=== PATIENT | female | born 1970 | race Caucasian/White ===

== ENCOUNTER 2024-03-22 23:34 | Inpatient (IN) | payer OTHER, SELFPAY ==
--- NOTE | ~2024-03-22 | XR_ITS ---
EXAMINATION: XR retrograde pyelo w/stent LT DATE: 03/23/2024 12:09 INDICATION: Left hydronephrosis. TECHNIQUE: 7 intraoperative fluoroscopic views of the abdomen and pelvis were obtained. I was not pre sent. Fluoroscopy exposure time was 17 seconds. COMPARISON: CT abdomen and pelvis 03/23/2024 FINDINGS: The left-sided retrograde pyelogram demonstrates mild hydronephrosis. The final images demo nstrate a left internal ureteral stent in expected position. IMPRESSION: 1. Mild left hydronephrosis. 2. Left internal ureteral stent in expected position. Reviewed, dictated and finalized at location A.
--- NOTE | ~2024-03-22 | XR_ITS ---
EXAMINATION: XR abdomen/kub 1V DATE: 03/24/2024 11:43 INDICATION: Left ureteral stone. TECHNIQUE: A supine view of the abdomen on 2 radiographs was obtained. COMPARISON: Abdomen radiograph 03/23/2024, CT abdomen and pelvis 03/23/2024 FINDINGS: There are no dilated loops of bowel. There is a left internal ureteral stent in expected po sition. There is a phlebolith in right pelvis. There is a 6 mm stone in left kidney. IMPRESSION: 1. 6 mm stone in left kidney. 2. Left internal ureteral stent in expected position. Reviewed, dictated and finalized at location E.
--- NOTE | ~2024-03-22 | CT_ITS ---
CT of the Abdomen and Pelvis: Indication: Abdominal pain Technique: 2.5 mm axial scans were obtained through the abdomen and pelvis following intravenous adm inistration of 100 cc of Omnipaque 350. Dose reduction technique was used on this scan by utilizing a utomated exposure control and iterative reconstruction technique. The dose-length product (DLP) was 9 67.73 mGy-cm. Findings: Scans through the lung bases are unremarkable. The liver, spleen, pancreas, gallbladder, adrenals and right kidney are within normal limits. There i s an 8 mm stone at the very proximal left ureter/left UPJ region, with mild left hydronephrosis and m inimal left perinephric stranding. There is an additional punctate nonobstructing left renal stone. S uggestion of mild decreased parenchymal enhancement of the inferior left renal pole. There are athero sclerotic calcifications of the aorta. . No lymphadenopathy. No bowel obstruction or bowel wall thickening. There is no evidence to suggest acute appendicitis. Images through the pelvis were performed. Urinary bladder unremarkable. No pelvic mass seen. No ascit es. Impression: 8 mm stone at the left UPJ region with mild left hydronephrosis and minimal perinephric stranding. Possible superimposed subtle left pyelonephritis. Correlate clinically and with urinalysis. Reviewed, dictated and finalized at location . Impression: 8 mm stone at the left UPJ region with mild left hydronephrosis and minimal per inephric stranding. Possible superimposed subtle left pyelonephritis. Correlate clinically and with urinalysis.
--- NOTE | ~2024-03-22 | XR_ITS ---
Clinical Indication: Fever PA and lateral views of the chest: Comparison: None Findings: The lungs are clear, without evidence of focal consolidation or pleural effusion. Cardiome diastinal silhouette is within normal limits. Bones and soft tissues are unremarkable. Impression: Normal chest. Reviewed, dictated and finalized at location . Impression: Normal chest.
--- NOTE | ~2024-03-22 | XR_ITS ---
Supine and upright views of the abdomen Clinical history: Kidney stone Findings: Bowel gas pattern is nonspecific. No evidence for obstruction or free air. 7 mm stone noted at the left UPJ region. There is contrast opacification of a mildly dilated left renal collecting sy stem Osseous structures are intact. Impression: 7 mm stone at the left UPJ. Mild left hydronephrosis. Reviewed, dictated and finalized at location . Impression: 7 mm stone at the left UPJ. Mild left hydronephrosis.
[2024-03-22 23:35] VITALS: BP 122/80; PULSE 110; RESP 16; TEMP 36.8; O2SAT 97
[2024-03-23] VITALS (17 sets, daily range): BP systolic 89–140; BP diastolic 58–86; PULSE 78–99; RESP 12–20; TEMP 36.1–37; O2SAT 94–100; BMI 35.5
[2024-03-23 00:25] LABS: Appearance Urine Clear (Clear); Bacteria Urine 1+ /hpf; Bilirubin Urine Negative (Negative); Blood Urine 1+ (Negative); Color Urine Yellow (Yellow); Glucose Urine UA Negative (Negative); Ketones Urine Negative (Negative); Leukocyte Esterase Ur 3+ LEU/UL (Negative); Nitrate Urine Negative (Negative); Non Pathogenic Casts 0-2; Protein Urine Negative (Negative); RBC Urine 0-2 /hpf (0-2); Specific Grav Ur 1.008 (1.001-1.035); Squamous Epithelial Cell Urine Occasional /hpf (Few); Urobilinogen Urine 0.2 mg/dL (<2.0); WBC Urine 51-100 /hpf (0-3); pH Urine 6.5 (5.0-9.0)
[2024-03-23 00:27] LABS: Add Urine Microscopic? YES
[2024-03-23 00:56] LABS: Influenza A QL RT-PCR Negative (Negative); Influenza B QL RT-PCR Negative (Negative); RSV RNA, RT-PCR Negative (Negative); SARS-CoV-2 RNA PCR Negative (Negative)
--- NOTE | 2024-03-23 01:08 | ECG_ITS ---
SEE SCANNED COPY FOR CONFIRMED REPORT MTDD
--- NOTE | 2024-03-23 01:15 | ED.FEVER ---
HPI - Fever General Chief Complaint: Fever <MISSY Strickland Last Filed: 03/23/24 02:56> Stated Complaint: fever, low back pain <MISSY Strickland Last Filed: 03/23/24 02:56> Time Seen by Provider: 03/23/24 00:54 <Juliet Eden PA-C - Last Filed: 03/23/24 02:56> History of Present Illness HPI Narrative: 53-year-old female presents to emergency department for fever for the past 3 days. Patient states T-max at home was 102 couple of days ago. She states her temperature was 101.4? before she left because to come to the ED. She is reporting some dysuria, left-sided abdominal pain and left flank pain. She notes that she was treated for urinary tract infection approximately 1 month ago with cefdinir. States she took the course of antibiotics with improvement, however symptoms have returned. She is also reporting some constipation. Last bowel movement was 3 days ago. She denies prior abdominal surgeries, chest pain or shortness of breath, cough or congestion. She does endorse a history of kidney stones. <MISSY Strickland Last Filed: 03/23/24 02:56> Related Data Allergies/Adverse Reactions: Allergies Allergy/AdvReac Type Severity Reaction Status Date / Time No Known Allergies Allergy Verified 03/23/24 01:35 <MISSY Strickland Last Filed: 03/23/24 02:56> Review of Systems Review of Systems: CONSTITUTIONAL: See HPI EYES: Denies visual changes, redness, or discharge. ENT: Denies rhinorrhea, congestion, sore throat, or otalgia. CARDIOVASCULAR: Denies chest pain, palpitations, or edema. RESPIRATORY: Denies cough or dyspnea. GASTROINTESTINAL: See HPI GENITOURINARY: See HPI SKIN: Denies rash or itching. MUSCULOSKELETAL: Denies back pain, joint pain, or myalgia. NEUROLOGIC: Denies headache, numbness, or weakness. PSYCHIATRIC: Denies anxiety or depression. <MISSY Strickland Last Filed: 03/23/24 02:56> Exam Narrative: GENERAL: Well-appearing, well-nourished, and in no acute distress. HEAD: Normocephalic, atraumatic. EYES: PERRLA and EOMI. ENT: Nares clear, no rhinorrhea or epistaxis. Mucous membranes moist. NECK: Supple. CHEST: Clear to auscultation. No respiratory distress. HEART: Regular rate and rhythm. No murmur heard. Normal peripheral pulses. ABDOMEN: Quiet bowel sounds. Abdomen soft with tenderness in the left lower quadrant. No rebound, guarding or rigidity. Left CVA tenderness. EXTREMITIES: Normal range of motion. No edema. SKIN: Warm, dry, no rash. NEURO: No focal deficits. Alert and oriented x3 <MISSY Strickland Last Filed: 03/23/24 02:56> Course Vital Signs Vital signs: Vital Signs Temperature 98.2 F 03/22/24 23:35 Pulse Rate 110 H 03/22/24 23:35 Respiratory Rate 16 03/22/24 23:35 Blood Pressure 122/80 03/22/24 23:35 Pulse Oximetry 97 03/22/24 23:35 Oxygen Delivery Room Air 03/22/24 23:35 Temperature 97.5 F L 03/23/24 04:03 Pulse Rate 90 03/23/24 05:16 Respiratory Rate 20 03/23/24 05:16 Blood Pressure 118/80 03/23/24 05:16 Pulse Oximetry 100 03/23/24 05:16 Oxygen Delivery Room Air 03/22/24 23:35 <Juliet Eden PA-C - Last Filed: 03/23/24 02:56> Vital Signs Temperature 98.2 F 03/22/24 23:35 Pulse Rate 110 H 03/22/24 23:35 Respiratory Rate 16 03/22/24 23:35 Blood Pressure 122/80 03/22/24 23:35 Pulse Oximetry 97 03/22/24 23:35 Oxygen Delivery Room Air 03/22/24 23:35 Temperature 97.5 F L 03/23/24 04:03 Pulse Rate 90 03/23/24 05:16 Respiratory Rate 20 03/23/24 05:16 Blood Pressure 118/80 03/23/24 05:16 Pulse Oximetry 100 03/23/24 05:16 Oxygen Delivery Room Air 03/22/24 23:35 <Casper Hughes MD - Last Filed: 03/23/24 05:53> MDM - Fever MDM Narrative Medical decision making narrative: 53-year-old female presents to emergency department for fever for 3 days. Also having abdominal pain, flank p
[2024-03-23] MEDS: ACETAMINOPHEN 500 MG TABLET 1000 MG PO (01:35)
[2024-03-23] MEDS: SODIUM CHLORIDE 0.9% IV 1,000 ML 999 ML IV CONT ×2 (01:35→03:15)
[2024-03-23 01:44] LABS: Basophils Percent Auto 0.3 % (0.2-1.2); Eosinophils Absolute Auto 0.1 K/mm3 (0-0.3); Eosinophils Percent Auto 0.6 % (0-4.4); Hemoglobin 12.1 g/dL (12.0-15.0); Immature Granulocyte Absolute 0.03 K/mm3 (0.00-0.031); Immature Granulocyte Percent A 0.3 % (0-0.5); Lymphocytes Absolute Auto 2.51 K/mm3 (0.9-3.2); Lymphocytes Percent Auto 22.4 % (18.3-44.2); Mean Corpuscular HGB Conc 33.6 g/dl (32-36); Mean Corpuscular Hemoglobin 31.9 pg (26-34); Mean Platelet Volume 9.9 fl (7.4-10.4); Monocytes Absolute Auto 0.9 K/mm3 (0.1-0.6); Monocytes Percent Auto 7.6 % (2.6-8.5); Neutrophils Absolute Auto 7.7 K/mm3 (1.3-6.7); Neutrophils Percent Auto 68.8 % (45.5-73.1); Platelet Count Result 242 k/mm3 (150-375); Red Blood Count 3.79 M/mm3 (4.2-5.4); Red Cell Distribution Width 12.6 % (11.5-14.5); White Blood Count 11.2 K/mm3 (4.5-10.0)
[2024-03-23 01:55] LABS: Prothrombin Time 13.5 Seconds (11.1-14.7)
[2024-03-23 01:56] LABS: Partial Thromboplastin Time 29.9 Seconds (22.3-36.8)
[2024-03-23 01:57] LABS: Alanine Aminotransferase 25 U/L (6-35); Albumin Level 4.4 g/dL (3.5-5.1); Alkaline Phosphatase 105 U/L (38-126); Anion Gap 7 mmol/L (4-12); Aspartate Amino Transferase 25 U/L (14-36); Bilirubin,Total 0.6 mg/dL (0.2-1.3); Blood Urea Nitrogen 14 mg/dL (7-17); Calcium 9.3 mg/dL (8.4-10.2); Carbon Dioxide 25 mmol/L (22-30); Chloride 107 mmol/L (98-107); Estimated CRCL calculation 84 ml/min; Estimated Glomerular Filt Rate > 60; Glucose 129 mg/dL (65-110); Lipase 40 U/L (23-300); Sodium 139 mmol/L (137-145)
[2024-03-23 01:58] LABS: Lactic Acid Reflex 0.7 mmol/L (0.7-2.0)
[2024-03-23] MEDS: LACTATED RINGERS 1,000 ML 150 ML IV CONT (05:13)
--- NOTE | 2024-03-23 07:29 | PC.NURSE ---
This patient, Shruti Mace, was admitted to [facility] Surg Room 326-01. Patient/family oriented to hospital policies and general routines including ID bracelet, bed and alarms, visiting hours, pain management, procedures, bathroom and other care routines, personal items, smoking policy, room service/diet, and visiting hours. Information on how to activate the Rapid Response Team has been discussed. Patient/Family are encouraged to report perceived risks to care and to ask questions if they do not understand what they are told or what they should do.
--- NOTE | 2024-03-23 08:19 | PM.IMHP ---
H&P: HPI History of Present Illness Date/Time: 03/23/24 08:19 Chief Complaint: obstructing left UPJ calculus with UTI fever Narrative: 53-year-old female presented to the emergency room with left flank pain and fevers. She states she had a fever up to 102 at home. This is been going on intermittently for the past 4-6 weeks time and she states she was treated for UTIs an outpatient. She has been afebrile in the emergency room. Evaluation with CT scan revealed a 7 8 mm left UPJ stone with some mild hydro and some perinephric stranding consistent with bile nephritis. At the time my evaluation she is actually quite comparable. White count [id number]. Review of Systems Review of Systems: All systems reviewed & are unremarkable except as noted in HPI and below PMFSH Social History Social History Smoking packs per day: 1 Smoking cigarettes per day: 20.0 Smoking status: Former smoker Tobacco type: cigarettes Smoking end date: 03/10/24 Alcohol intake: current Drinks per week: 1 Substance use: former Substance use type: former substance user Last use: 1999 Do You Feel Safe in your Home?: Yes Lack of Transportation: No Lack of Food: Never True Current Housing: I Have Housing Concerned About Future Housing: No Difficulty Paying Gas/Electric Bills: No Difficulty Paying for Meds: No Currently Unemployed: No Education: Associate Degree Difficulty w/ Childcare or Family Care: No Spiritual care concerns: No Meds Home Medications and Allergies Home Medications Medication Instructions Recorded Confirmed Type cholecalciferol (vitamin D3) 10 400 unit PO DAILY 03/23/24 03/23/24 History mcg (400 unit) capsule (Vitamin D3) cyclobenzaprine 10 mg tablet 10 mg PO TID 03/23/24 03/23/24 History multivit with minerals-iron 18 1 tablet PO DAILY 03/23/24 03/23/24 History mg-folic ac 400 mcg-vit K 25 mcg tablet (Adults Multivitamin) nicotine 21 mg/24 hr daily 1 patch transdermal DAILY 03/23/24 03/23/24 History transdermal patch omeprazole magnesium 20 mg 20 mg PO DAILY 03/23/24 03/23/24 History capsule,delayed release (Acid Club Waiter/Waitress (omeprazole)) Allergies Allergy/AdvReac Type Severity Reaction Status Date / Time No Known Allergies Allergy Verified 03/23/24 01:35 Vital Signs Vital Signs - 24 hr 03/22/24 23:35 03/23/24 03:46 03/23/24 04:03 Temperature 36.8 C 36.4 C L Pulse Rate 110 H 88 Respiratory Rate 16 17 Blood Pressure 122/80 101/60 Pulse Oximetry 97 96 Oxygen Delivery Room Air 03/23/24 05:16 03/23/24 06:30 03/23/24 06:51 Temperature Pulse Rate 90 79 78 Respiratory Rate 20 19 16 Blood Pressure 118/80 107/73 104/69 Pulse Oximetry 100 97 100 Oxygen Delivery 03/23/24 07:08 Temperature 36.4 C L Pulse Rate 88 Respiratory Rate 18 Blood Pressure 131/86 Pulse Oximetry 100 Oxygen Delivery Exam Const: General: cooperative, healthy appearing and comfortable Resp: Effort & Inspection: normal respiratory effort Cardio: Rate: regular rate GI: Inspection: normal to inspection GI Palp: Yes Soft to palpation H&P: Results Labs Labs: Short CBC 03/23/24 Range/Units 01:34 WBC 11.2 H (4.5-10.0) K/mm3 Hgb 12.1 (12.0-15.0) g/dL Hct 36.0 L (37.0-47.0) % Plt Count 242 (150-375) k/mm3 BMP 03/23/24 01:34 Sodium 139 Potassium 4.0 Chloride 107 Carbon Dioxide 25 BUN 14 Creatinine 0.70 Glucose 129 H Calcium 9.3 Liver Function 03/23/24 Range/Units 01:34 Total Bilirubin 0.6 (0.2-1.3) mg/dL AST 25 (14-36) U/L ALT 25 (6-35) U/L Alkaline Phosphatase 105 (38-126) U/L Albumin 4.4 (3.5-5.1) g/dL Urine 03/23/24 Range/Units 00:12 Urine Color Yellow (Yellow) Urine Appearance Clear (Clear) Urine pH 6.5 (5.0-9.0) Ur Specific [place] 1.008 (1.001-1.035) Urine Protein Negative (Negative) mg
--- NOTE | 2024-03-23 08:23 | WPDHPUPDATE1 ---
History and Physical Update Update Date/Time: 03/23/24 08:23 History and Physical has been reviewed, including an updated exam of the patient. There are NO changes in the patient's condition. Risks, benefits, and alternatives have been discussed and questions answered. Patient agrees to proceed with procedure. Proceed with cystoscopy, left retrograde pyelogram, left ureteral stent placement
[2024-03-23 08:57] LABS: Beta HCG Quantitative < 2.39 mIU/ML
[2024-03-23] MEDS: LACTATED RINGERS 1,000 ML 30 ML IV CONT (10:00)
--- NOTE | 2024-03-23 11:41 | WPDANESEPPF ---
Anes - Initial Pre Proc Eval Procedure: Operation Date: 03/23/24 11:15 Proposed Procedures p Cystoscopy, Left Retrograde Pyelogram, Left Stent Placement - Oren Robert MD Date/Time: 03/23/24 11:41 Surgeon: Alma Alan MD Pre Op Diagnosis: infected kidney stone Patient Data Age: 53 Gender: F Height: 1.63 m Weight: 93.9 kg Last Vital Signs Temp 97.2 F L 03/23/24 10:18 Pulse 99 03/23/24 10:18 Resp 16 03/23/24 10:18 BP 135/84 03/23/24 10:18 Pulse Ox 98 03/23/24 10:18 O2 Del Method Room Air 03/23/24 10:18 Allergies Allergy/AdvReac Type Severity Reaction Status Date / Time No Known Allergies Allergy Verified 03/23/24 10:07 Home Medications Medication Instructions Recorded Confirmed Type cholecalciferol (vitamin D3) 10 400 unit PO DAILY 03/23/24 03/23/24 History mcg (400 unit) capsule (Vitamin D3) cyclobenzaprine 10 mg tablet 10 mg PO TID 03/23/24 03/23/24 History multivit with minerals-iron 18 1 tablet PO DAILY 03/23/24 03/23/24 History mg-folic ac 400 mcg-vit K 25 mcg tablet (Adults Multivitamin) nicotine 21 mg/24 hr daily 1 patch transdermal DAILY 03/23/24 03/23/24 History transdermal patch omeprazole magnesium 20 mg 20 mg PO DAILY 03/23/24 03/23/24 History capsule,delayed release (Acid Bridges Supervisor (omeprazole)) Laboratory Tests 03/23/24 03/23/24 03/23/24 00:11 00:12 01:34 WBC 11.2 H K/mm3 (4.5-10.0) RBC 3.79 L M/mm3 (4.2-5.4) Hgb 12.1 g/dL (12.0-15.0) Hct 36.0 L % (37.0-47.0) MCV 95.0 fl (80-100) MCH 31.9 pg (26-34) MCHC 33.6 g/dl (32-36) RDW 12.6 % (11.5-14.5) Plt Count 242 k/mm3 (150-375) MPV 9.9 fl (7.4-10.4) Immature Gran % (Auto) 0.3 % (0-0.5) Neut % (Auto) 68.8 % (45.5-73.1) Lymph % (Auto) 22.4 % (18.3-44.2) [place] % (Auto) 7.6 % (2.6-8.5) Eos % (Auto) 0.6 % (0-4.4) Baso % (Auto) 0.3 % (0.2-1.2) Lymph # (Auto) 2.51 K/mm3 (0.9-3.2) [place]ett # (Auto) 0.9 H K/mm3 (0.1-0.6) Eos # (Auto) 0.1 K/mm3 (0-0.3) Baso # (Auto) 0.0 K/mm3 (0.0-0.1) Abs Immat Gran (auto) 0.03 K/mm3 (0.00-0.031) Absolute Neuts (auto) 7.7 H K/mm3 (1.3-6.7) Absolute Nucleated RBC 0.000 K/mm3 (0.0-0.012) Nucleated RBC % 0.0 % (0.0-0.2) PT 13.5 Seconds (11.1-14.7) INR 1.0 APTT 29.9 Seconds (22.3-36.8) Sodium 139 mmol/L (137-145) Potassium 4.0 mmol/L (3.4-5.0) Chloride 107 mmol/L (98-107) Carbon Dioxide 25 mmol/L (22-30) Anion Gap 7 mmol/L (4-12) BUN 14 mg/dL (7-17) Creatinine 0.70 mg/dL (0.7-1.0) Estim Creat Clear Calc 84 ml/min Estimated GFR > 60 (59 - ) Glucose 129 H mg/dL (65-110) Lactic Acid 0.7 mmol/L (0.7-2.0) Calcium 9.3 mg/dL (8.4-10.2) Total Bilirubin 0.6 mg/dL (0.2-1.3) AST 25 U/L (14-36) ALT 25 U/L (6-35) Alkaline Phosphatase 105 U/L (38-126) Total Protein 8.0 g/dL (6.3-8.2) Albumin 4.4 g/dL (3.5-5.1) Lipase 40 U/L (23-300) Beta HCG, Quant < 2.39 mIU/ML Urine Color Yellow (Yellow) Urine Appearance Clear (Clear) Urine pH 6.5 (5.0-9.0) Ur Specific [place] 1.008 (1.001-1.035) Urine Protein Negative mg/dL (Negative) Urine Glucose (UA) Negative mg/dL (Negative) Urine Ketones Negative mg/dL (Negative) Ur Blood (Man) 1+ H (Negative) Urine Nitrate Negative (Negative) Urine Bilirubin Negative (Negative) Urine Urobilinogen 0.2 mg/dL (<2.0) Leukocyte Esterase Rfl 3+ H JOY/UL
[2024-03-23] MEDS: LIDOCAINE HCL 2% GEL UROJET 10 ML PKG MUCOUS MEM (11:57)
--- NOTE | 2024-03-23 12:07 | P.OP_ITS ---
Procedure Note - Detailed Date of Procedure 03/23/24 Pre-op Diagnosis infected kidney stone, hydronephrosis Post-op Diagnosis Same Procedure Performed Cystoscopy, left retrograde pyelogram, left ureteral stent placement 4.8 Sammarinese contour Surgeon Oren Robert MD Anesthesia General Description of Procedure Patient was taken to the operative suite correctly identified. Once anesthesia was obtained she was placed in dorsal lithotomy position and prepped and draped usual sterile fashion. Twenty-two Sammarinese scope was inserted the bladder. There is no tumors noted. Left ureteral orifice was cannulated with a ureteral catheter and a pyelogram was performed. Contrast made its way renal pelvis. At this point a 4.8 Sammarinese contour stent was then passed over a guidewire up into the renal pelvis and the distal in the bladder. Bladder was drained. 2% viscous lidocaine was inserted into the urethra patient is taken recovery stable condition. Will reimage with KUB in the morning and plan on outpatient treatment once she gets over her urinary tract infection. This completes dictation. Please send a copy of op note to my office Estimated Blood Loss 0 Urine Output 300 Drains Yes Packing No Pathology None sent Complications No immediate complications Condition Stable Disposition PACU
[2024-03-23] MEDS: ONDANSETRON INJ 4 MG/2 ML VIAL IV PUSH (12:39)
[2024-03-23] MEDS: KETOROLAC 10 MG TABLET PO ×2 (14:17→20:11)
[2024-03-23] MEDS: PHENAZOPYRIDINE HCL 100 MG TABLET PO ×2 (14:17→21:51)
[2024-03-23] MEDS: oxyBUTYnin CHLORIDE 5 MG TABLET PO ×2 (14:17→20:13)
[2024-03-23] MEDS: NICOTINE (*PBKC) 21 MG PATCH 1 PATCH TRANSDERM (14:58)
[2024-03-23] MEDS: CYCLOBENZAPRINE HCL 10 MG TABLET PO (21:51)
[2024-03-24] MEDS: KETOROLAC 10 MG TABLET PO ×2 (01:48→09:12)
[2024-03-24 05:25] VITALS: PULSE 74; RESP 16; TEMP 36.4; O2SAT 99
[2024-03-24] MEDS: PHENAZOPYRIDINE HCL 100 MG TABLET PO ×2 (09:11→11:53)
[2024-03-24] MEDS: NICOTINE (*PBKC) 21 MG PATCH 1 PATCH TRANSDERM (09:13)
[2024-03-24] MEDS: CYCLOBENZAPRINE HCL 10 MG TABLET PO (09:19)
[2024-03-24] MEDS: polyethylene glycoL 3350 17 GM POWD.PACK PO (11:53)
[2024-03-24] MEDS: DOCUSATE SODIUM 100 MG CAPSULE PO (11:53)
--- NOTE | 2024-03-24 13:23 | PM.DS ---
DS: Admitting Diagnosis Discharge Date 03/24/24 Admitting Diagnosis Left ureteral stone DS: Discharge Diagnosis Discharge Diagnosis (1) Left ureteral calculus: Code(s): N20.1 - Calculus of ureter Status: Acute Assessment and Plan: Underwent cystoscopy, left retrograde pyelogram, left ureteral stent placement on 03/23/24. Will need definitive stone treatment at a later date. (2) Pyelonephritis: Code(s): N12 - Tubulo-interstitial nephritis, not specified as acute or chronic Status: Acute Assessment and Plan: Urine culture pending. Will continue Cipro and adjust as needed based on final culture results. She remained afebrile throughout admission with only minimally elevated WBC. DS: Summary Hospital Course Hospital Course: Date of admission: 03/23/2024 Date of discharge: 03/24/2024 Shruti Mace is a 53-year-old female who presented to the emergency department on 03/23/2024 with complaints of fever at home and associated dysuria and left-sided flank pain. On arrival, she was afebrile, her vital signs were stable, white blood cell count 11.2, creatinine 0.7, UA with positive leukocytes and white blood cells, no nitrites, and CT of the abdomen/pelvis showed 8 mm stone at the left UPJ with mild left hydronephrosis and minimal perinephric stranding with possible superimposed subtle left pyelonephritis. She underwent cystoscopy, left retrograde pyelogram, left ureteral stent placement on 03/23/2024 and tolerated this procedure well. Urine cultures and blood cultures pending at time of discharge will be monitored. She was started on a course of Cipro which she will continue for 7 days. KUB obtained prior to discharge which demonstrated visible 6 mm stone. Will plan for definitive stone management as an outpatient. Can continue oxybutynin as needed for bladder spasms. Time Spent with Patient Time attestation: Total time spent providing and/or coordinating discharge services: 35 minutes Time spent: Greater than 30 minutes Exam Narrative: General: Awake, alert, comfortable, no acute distress HEENT: Normocephalic, atraumatic, sclerae anicteric Respiratory: Normal respiratory effort, no accessory muscle use Abdomen: Nondistended, soft, nontender Skin: Normal coloration, warm and dry Neurologic: No focal neuro deficits noted Psychiatric: Appropriate mood and affect, judgment and insight intact DS: Data Data Completed and Pending Labs on day of discharge: Preliminary micro results at discharge 03/23/24 06:11 Blood Culture - Preliminary Blood 03/23/24 06:11 Blood Culture - Preliminary Blood Discharge Plan Discharge Attending physician on discharge: Oren Robert Consulting providers: Oren Robert; Juliet Eden Discharging Clinician: Alem Collado Patient Disposition: Home, Self-Care Activity: as tolerated Diet: regular Discharge Instructions: Take Cipro two times per day for the next 7 days. Patient Instructions: Antibiotic Form, How to Stop Smoking (GEN), Kidney Stones (DC), How to Strain Your Urine (ED) Stand Alone Forms: General Discharge Information Follow-up/Referrals: Oren Robert MD [Physician] - 2 Weeks Discharge Medications: New oxybutynin chloride 5 mg Tablet 5 mg PO TID PRN (Reason: Spasms) Qty: 20 0RF ciprofloxacin HCl 500 mg tablet 500 mg PO Q12H Qty: 14 0RF Continued cyclobenzaprine 10 mg tablet 10 mg PO TID nicotine 21 mg/24 hr patch 24 hour 1 patch transdermal DAILY cholecalciferol (vitamin D3) [Vitamin D3] 10 mcg (400 unit) Capsule 400 unit PO DAILY omeprazole magnesium [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
[2024-03-24 14:00] VITALS: BP 112/71; PULSE 86; RESP 16; TEMP 36.1; O2SAT 97
--- NOTE | 2024-03-24 16:05 | PC.NURSE ---
On 03/24/24, the DIPPER FISH, Reyna Cook, provided care and completed [employer] documentation on this patient. I have reviewed the DIPPER FISH's documentation and agree with the findings.
== END 2024-03-24 16:05 | disposition home or self-care (01) | DRG 661 ==
LOC: ANHED 03-23 05:53 → ANH3MEDSUR 03-23 07:38
PROVIDERS: Anesthesiology; Emergency Medicine; Admitting Provider Internal Medicine; Emergency Provider Physician Assistant; Visit Provider Urology
PROC: 0T778DZ Dilation of Left Ureter with Intraluminal Device, Via Natural or Artificial Opening Endoscopic (ICD-10-PCS; CPT 52352; principal; 2024-03-23 11:15)
DX: N13.6 Pyonephrosis (principal); B96.20 Unspecified Escherichia coli [E. coli] as the cause of diseases classified elsewhere; E66.01 Morbid (severe) obesity due to excess calories; Z20.822 Contact with and (suspected) exposure to COVID-19; Z87.891 Personal history of nicotine dependence; Z68.35 Body mass index [BMI] 35.0-35.9, adult
CPT/HCPCS: 36415; 71046; 74018; 74177; 74420; 80053; 81001; 83605; 83690; 84702; 85025; 85610; 85730; 87040; 87077; 87086; 87088; 87186; 87637; 93005; 96361; 96365; 99285; A9270; C1758; C1769; C2617; J0696; J1100; J1885; J2250; J2405; J2704; J3010; J7030; J7120; Q9966; Q9967

== ENCOUNTER 2024-04-01 14:23 | Outpatient (CLI) | payer OTHER, SELFPAY ==
--- NOTE | ~2024-04-01 | CT_ITS ---
EXAMINATION: CT lung screening DATE: 04/01/2024 15:11 INDICATION: Nicotine dependence, unspecified, uncomplicated TECHNIQUE: Computed tomography (CT) of the chest was performed without intravenous contrast. Addition al 3D reconstructions utilizing coronal maximum intensity projection (MIP) were performed. Automated exposure control and iterative reconstruction technique were employed. The dose-length product was 16 1.15 mGy-cm. COMPARISON: None FINDINGS: Mild discoid atelectasis at the caudal tip of the lingula. Small calcified right upper lobe nodule co nsistent with old granulomatous disease. 3 mm noncalcified nodule in the superior segment of the righ t lower lobe. No pneumonia, pulmonary edema or pleural effusion. Heart size is normal. Small amount o f atherosclerotic coronary artery calcific location. No pericardial effusion. Thoracic aorta is paul l in caliber. No pathologically enlarged thoracic lymphadenopathy. Moderate thoracic spondylosis. IMPRESSION: 1. . Lung-RADS category 2: Benign appearance or behavior. Continue annual screening with noncontrast low-dose chest CT in 12 months. Reviewed, dictated and finalized at location A. IMPRESSION: 1. . Lung-RADS category 2: Benign appearance or behavior. Continue annual scree portillo with noncontrast low-dose chest CT in 12 months.
== END 2024-04-01 14:24 ==
LOC: MICIMG 14:25
PROVIDERS: PCP Family Medicine; Visit Provider Family Medicine
DX: Z12.2 Encounter for screening for malignant neoplasm of respiratory organs (principal); F17.210 Nicotine dependence, cigarettes, uncomplicated
CPT/HCPCS: 71271

== ENCOUNTER 2024-04-05 17:54 | Emergency (ER) | payer OTHER, SELFPAY ==
--- NOTE | ~2024-04-05 | CT_ITS ---
EXAMINATION: CT abdomen pelvis wo con DATE: 04/05/2024 20:16 INDICATION: Left flank pain TECHNIQUE: Computed tomography (CT) of the abdomen and pelvis was performed without intravenous contr ast. The dose-length product was 948.93 mGy-cm. Automated exposure control and iterative reconstructi on technique were employed. COMPARISON: CT dated 03/23/2024 FINDINGS: Lung bases are unremarkable. Heart size normal. No significant pleural or pericardial effus ion. There are nonobstructing bilateral renal stones. There is a left internal ureteral stent in expe cted position. The liver, spleen, pancreas, adrenal glands are unremarkable. Gallbladder is present. Nonobstructive bowel gas pattern. No acute osseous abnormality. No free air or free fluid. No significant vascular a bnormality. No focal lytic or blastic lesions. IMPRESSION: 1. Left internal ureteral stent in expected position with resolution of left hydronephrosis. 2: Nonobstructing bilateral nephrolithiasis. Reviewed, dictated and finalized at location A. IMPRESSION: 1. Left internal ureteral stent in expected position with resolution of left hy dronephrosis. 2: Nonobstructing bilateral nephrolithiasis.
[2024-04-05 17:58] VITALS: BP 147/93; PULSE 99; RESP 14; TEMP 36.4; O2SAT 100
--- NOTE | 2024-04-05 19:34 | ED.FEMALEGU ---
HPI - Female Genitourinary General Chief complaint: Urogenital-Female Stated complaint: left sided flank pain Time Seen by Provider: 04/05/24 19:03 Source: patient Limitations: no limitations History of Present Illness HPI Narrative: Patient is a 53-year-old female presents to the emergency department complaining of left flank pain. Patient states he had a stent placed on the 23 of March and has an upcoming appointment with the urologist on Friday and she has overall been doing well without any pain medications and throughout the day today she started to have a flare up with left-sided flank pain feeling like her history of kidney stones and it has been overall constant waxing and waning, has not tried anything for the pain, admits to some slight decreased urine output and nausea without any vomiting. Patient denies any injuries. Patient denies fevers, diarrhea, dysuria. Patient has some blood in her urine. Patient denies chest pain, difficulty breathing. Patient admits to taking an antibiotic with ciprofloxacin for 7 days and she finished this on Friday. Related Data Home Medications Medication Instructions Recorded Confirmed cholecalciferol (vitamin D3) 10 400 unit PO DAILY 03/23/24 03/23/24 mcg (400 unit) capsule (Vitamin D3) cyclobenzaprine 10 mg tablet 10 mg PO TID 03/23/24 03/23/24 multivit with minerals-iron 18 1 tablet PO DAILY 03/23/24 03/23/24 mg-folic ac 400 mcg-vit K 25 mcg tablet (Adults Multivitamin) nicotine 21 mg/24 hr daily 1 patch transdermal DAILY 03/23/24 03/23/24 transdermal patch omeprazole magnesium 20 mg 20 mg PO DAILY 03/23/24 03/23/24 capsule,delayed release (Acid Sailing Instructor (omeprazole)) Allergies Allergy/AdvReac Type Severity Reaction Status Date / Time No Known Allergies Allergy Verified 03/23/24 10:07 Review of Systems Review of Systems: A 10 system review of systems was completed on the patient and is negative except for what is stated in the HPI. Nursing and ancillary documentation was reviewed. [facility] Social History Social History Smoking packs per day: 1 Smoking cigarettes per day: 20.0 Smoking status: Former smoker Tobacco type: cigarettes Smoking end date: 03/10/24 Alcohol intake: current Drinks per week: 1 Substance use: former Substance use type: former substance user Last use: 1999 Do You Feel Safe in your Home?: Yes Lack of Transportation: No Lack of Food: Never True Current Housing: I Have Housing Concerned About Future Housing: No Difficulty Paying Gas/Electric Bills: No Difficulty Paying for Meds: No Currently Unemployed: No Education: Associate Degree Difficulty w/ Childcare or Family Care: No Spiritual care concerns: No Comments At time of signature, I have reviewed and agree with nursing past medical, surgical, social and family history unless otherwise noted. Please see the nursing chart for further information. There is no relevant family history pertinent to the presenting complaint. Exam Narrative: CONST: No acute distress. Well nourished. HENMT: Head is normocephalic and atraumatic. Moist mucous membranes. No posterior oropharynx erythema. EYES: No conjunctival icterus, injection, or pallor. PERRL. NECK: No meningeal signs. RESP: Able to speak in full sentences. Normal respiratory effort. CTAB. CARDIO: Regular rate. Regular rhythm. 2+ DP and radial pulses bilaterally. GI: Nondistended. No tenderness to palpation. Soft. : Mild left CVA tenderness to palpation. SKIN: No rashes or lesions noted on exposed skin. NEURO: Oriented x3. Moves all extremities. EXTREM/MSK/BACK: No pedal edema. PSYCH: Normal affect. Course Vital Signs Vital signs: Vital Signs Temperature 97.6 F 04/05/24 17:58 Pulse Rate 99 04/05/24 17:58 Respiratory Rate 14 04/05/24 17:58 Blood Pressure 147/93 H 04/05/24 17:58 Pulse Oximetry
[2024-04-05] MEDS: MORPHINE SULFATE (*CRX) 4 MG/ML INJ IV PUSH (19:55)
[2024-04-05] MEDS: ONDANSETRON INJ 4 MG/2 ML VIAL IV PUSH (19:56)
[2024-04-05 20:01] LABS: Basophils Percent Auto 0.3 % (0.2-1.2); Eosinophils Absolute Auto 0.2 K/mm3 (0-0.3); Hemoglobin 13.6 g/dL (12.0-15.0); Immature Granulocyte Absolute 0.04 K/mm3 (0.00-0.031); Immature Granulocyte Percent A 0.3 % (0-0.5); Lymphocytes Absolute Auto 4.19 K/mm3 (0.9-3.2); Lymphocytes Percent Auto 34.2 % (18.3-44.2); Mean Corpuscular HGB Conc 33.2 g/dl (32-36); Mean Corpuscular Hemoglobin 31.3 pg (26-34); Mean Corpuscular Volume 94.5 fl (80-100); Mean Platelet Volume 9.4 fl (7.4-10.4); Monocytes Absolute Auto 0.6 K/mm3 (0.1-0.6); Monocytes Percent Auto 5.1 % (2.6-8.5); Neutrophils Absolute Auto 7.1 K/mm3 (1.3-6.7); Neutrophils Percent Auto 58.1 % (45.5-73.1); Platelet Count Result 362 k/mm3 (150-375); Red Blood Count 4.34 M/mm3 (4.2-5.4); Red Cell Distribution Width 12.4 % (11.5-14.5); White Blood Count 12.3 K/mm3 (4.5-10.0)
[2024-04-05 20:12] LABS: Alanine Aminotransferase 23 U/L (6-35); Albumin Level 4.6 g/dL (3.5-5.1); Alkaline Phosphatase 99 U/L (38-126); Anion Gap 7 mmol/L (4-12); Aspartate Amino Transferase 24 U/L (14-36); Bilirubin,Total 0.5 mg/dL (0.2-1.3); Blood Urea Nitrogen 24 mg/dL (7-17); Calcium 9.6 mg/dL (8.4-10.2); Carbon Dioxide 27 mmol/L (22-30); Chloride 105 mmol/L (98-107); Estimated CRCL calculation 66 ml/min; Estimated Glomerular Filt Rate > 60; Glucose 112 mg/dL (65-110); Lactic Acid Reflex 1.1 mmol/L (0.7-2.0); Lipase 86 U/L (23-300); Magnesium 1.9 mg/dL (1.6-2.3); Sodium 139 mmol/L (137-145)
[2024-04-05] MEDS: SODIUM CHLORIDE 0.9% IV 1,000 ML 999 ML IV CONT (20:22)
[2024-04-05 21:01] LABS: Appearance Urine Cloudy (Clear); Bacteria Urine 1+ /hpf; Bilirubin Urine Negative (Negative); Blood Urine 3+ (Negative); Color Urine Yellow (Yellow); Glucose Urine UA Negative (Negative); Ketones Urine Negative (Negative); Leukocyte Esterase Ur 2+ LEU/UL (Negative); Mucus Urine Present /lpf; Need Manual Microscopic Reviewed; Nitrate Urine Negative (Negative); Non Pathogenic Casts >20; Protein Urine 3+ mg/dL (Negative); RBC Urine >100 /hpf (0-2); Specific Grav Ur 1.021 (1.001-1.035); Squamous Epithelial Cell Urine Occasional /hpf (Few); Urobilinogen Urine 0.2 mg/dL (<2.0); WBC Urine 51-100 /hpf (0-3)
[2024-04-05 21:15] LABS: Add Urine Microscopic? YES
[2024-04-05] MEDS: KETOROLAC 15 MG/ML VIAL (*BKC) IV PUSH (22:12)
[2024-04-05 22:22] VITALS: BP 142/78; PULSE 78; RESP 18; TEMP 36.8; O2SAT 100
== END 2024-04-05 22:25 | disposition home or self-care (01) ==
PROVIDERS: Emergency Provider Student in an Organized Health Care Education/Training Program; PCP Family Medicine
DX: N39.0 Urinary tract infection, site not specified (principal); N20.0 Calculus of kidney; Z96.0 Presence of urogenital implants; Z87.891 Personal history of nicotine dependence; Z79.899 Other long term (current) drug therapy
CPT/HCPCS: 36415; 74176; 80053; 81001; 81025; 83605; 83690; 83735; 85025; 87086; 96361; 96374; 96375; 99284; J0696; J1885; J2270; J2405; J7030

== ENCOUNTER 2024-04-14 14:02 | Outpatient (CLI) | payer OTHER, SELFPAY ==
[2024-04-14 14:31] LABS: Prothrombin Time 13.2 Seconds (11.1-14.7)
[2024-04-14 14:32] LABS: Partial Thromboplastin Time 28.4 Seconds (22.3-36.8)
== END 2024-04-14 14:03 | disposition home or self-care (01) ==
LOC: ANHSURGERY 14:06
PROVIDERS: PCP Family Medicine; Visit Provider Urology
DX: Z01.818 Encounter for other preprocedural examination (principal); N20.1 Calculus of ureter
CPT/HCPCS: 36415; 85610; 85730

== ENCOUNTER 2024-04-16 01:11 | Day surgery (SDC) | payer OTHER, SELFPAY ==
[2024-04-09 10:10] VITALS: BMI 30.9
--- NOTE | 2024-04-09 10:17 | PC.NURSE ---
Report to the Outpatient Waiting Room, entrance under the green pavilion located off [facility], at time _1200_ on date _[id number]_. Planned Procedure Time: _2pm_. Time changes happen often and if your time is changed the preop area will call you the afternoon before. - You and your visitor will be asked to self-screen and do not enter if you have any COVID symptoms. - A mask is optional within the hospital at this time. Patients may have clear liquids (water, carbonated beverages, clear teas, apple juice) until 3 hours prior to surgery with a maximum of 20 ounces. - No food from midnight until time of surgery Take the following medications with a SIP of water the morning of surgery: ___None DO NOT STOP ANY OF YOUR OTHER PRESCRIPTION MEDICATIONS PRIOR TO SURGERY ?EXCEPT THE FOLLOWING Medications to discontinue per physician Multivitamin and vitamin d3 Date to take last vrkc___[id number] Please no make-up, nail cuban, hairspray, perfume, deodorant, or body powder the day of surgery. No jewelry (including any body piercings) or valuables the day of surgery, leave them at home. Please take a shower or bath the night before, or the morning of, surgery with an antibacterial soap. Wear comfortable, loose fitting clothing. - Jewelry must be removed prior to entering the operating room. Rings and piercings that are not removed may be cut off. - The hospital will not accept responsibility for valuables. - Please leave all valuables, including medications, at home the day of surgery. If you are going home after surgery, a licensed charter bus driver must drive you home. - NO public transportation without another adult if you receive anesthesia. - We recommend that an adult stay with you for 24 hours following discharge. - We also recommend that you do not drive, make important decision, drink alcoholic beverages, or take any drugs that were not prescribed by your health care provider for at least 24 hours after your discharge time. Follow any additional instructions given to you from your surgeon. If you or anyone in your household have experienced Covid symptoms in the past week, please notify your surgeon or the nurse liaison at the phone number below for possible testing. Telephone instructions given to _Mistie__and asked if any additional questions and then verbalized understanding. Patient advised to call surgeon office or pre surgery nurse liaison [phone] if any additional questions.
[2024-04-16] VITALS (7 sets, daily range): BP systolic 127–168; BP diastolic 78–109; PULSE 67–92; RESP 12–18; TEMP 36.3; O2SAT 97–100
--- NOTE | ~2024-04-16 | XR_ITS ---
Supine and upright views of the abdomen Clinical history: Lithotripsy COMPARISON: 03/24/2024 Findings: Bowel gas pattern is nonspecific. No evidence for obstruction or free air. Left ureteral st ent in place. Stable 7 mm left lower pole renal stone. Osseous structures are intact. Impression: Stable 7 mm left lower pole renal stone with left ureteral stent in place. Reviewed, dictated and finalized at location . Impression: Stable 7 mm left lower pole renal stone with left ureteral stent in place.
[2024-04-16] MEDS: LACTATED RINGERS 1,000 ML 30 ML IV CONT (06:46)
--- NOTE | 2024-04-16 06:57 | PM.HPGS ---
History of Present Illness History of Present Illness Consent: Risks, benefits, and alternatives have been discussed and questions answered. Patient agrees to proceed with procedure. Chief complaint: Left Ureteral Stone Narrative: Shruti Mace is a 53 year old female who has had ESWL on 1 occasion in the remote past. Recently she presented with an obstructing left proximal ureteral stone and urinary tract infection. A ureteral stent was placed in she has been treated for her infection. She now presents for definitive left ESWL. She is aware the risk including, but not limited to, adverse cardiopulmonary events, perinephric hematoma, hematuria and need for additional procedures. Her stone measures 7-8 mm and is pushed back into a lower pole calyx. We will plan simultaneous left stent removal today. Review of Systems Review of Systems: All systems reviewed & are unremarkable except as noted in HPI and below PMFSH Social History Social History Smoking packs per day: 0.5 Smoking cigarettes per day: 10.0 Years smoked: 20 Smoking pack-years: 10.00 Smoking status: Former smoker Tobacco type: cigarettes Smoking end date: 02/23/24 Alcohol intake: current Drinks per week: 1 Substance use: former Substance use type: former substance user Last use: 1999 Do You Feel Safe in your Home?: Yes Lack of Transportation: No Lack of Food: Never True Current Housing: I Have Housing Concerned About Future Housing: No Difficulty Paying Gas/Electric Bills: No Difficulty Paying for Meds: No Currently Unemployed: No Education: Associate Degree Difficulty w/ Childcare or Family Care: No Living arrangements: with family Spiritual care concerns: No Meds Home Medications and Allergies Home Medications Medication Instructions Recorded Confirmed Type cholecalciferol (vitamin D3) 10 400 unit PO DAILY 03/23/24 04/09/24 History mcg (400 unit) capsule (Vitamin D3) multivit with minerals-iron 18 1 tablet PO DAILY 03/23/24 04/09/24 History mg-folic ac 400 mcg-vit K 25 mcg tablet (Adults Multivitamin) nicotine 21 mg/24 hr daily 1 patch transdermal DAILY 03/23/24 04/09/24 History transdermal patch omeprazole magnesium 20 mg 20 mg PO DAILY 03/23/24 04/09/24 History capsule,delayed release (Acid Literacy Consultant (omeprazole)) oxybutynin chloride 5 mg tablet 5 mg PO TID PRN Spasms #20 tabs 03/24/24 04/09/24 Rx ibuprofen 600 mg tablet 600 mg PO Q6H PRN pain #30 tabs 04/05/24 04/09/24 Rx ondansetron 4 mg disintegrating 4 mg PO Q8H PRN nausea and 04/05/24 04/09/24 Rx tablet vomiting #14 tabs sulfamethoxazole 800 1 tablet PO Q12H 7 days #14 tabs 04/05/24 04/09/24 Rx mg-trimethoprim 160 mg tablet (Bactrim DS) Allergies Allergy/AdvReac Type Severity Reaction Status Date / Time No Known Allergies Allergy Verified 04/16/24 06:31 Vital Signs Vital Signs - 24 hr 04/16/24 06:34 Pulse Rate 82 Blood Pressure 134/82 Pulse Oximetry 97 Oxygen Delivery Room Air Exam Const: General: no acute distress Resp: Effort & Inspection: normal respiratory effort GI: Inspection: non-distended GI Palp: No abdominal tenderness and No Guarding due to palpation present (GI) Auscultation: normal bowel sounds Assessment and Plan Assessment and plan (1) Kidney stone: Code(s): N20.0 - Calculus of kidney Status: Acute Plan Cystoscopy, left stent removal and left ESWL
--- NOTE | 2024-04-16 07:00 | WPDHPUPDATE1 ---
History and Physical Update Update Date/Time: 04/16/24 07:00 History and Physical has been reviewed, including an updated exam of the patient. There are NO changes in the patient's condition. Risks, benefits, and alternatives have been discussed and questions answered. Patient agrees to proceed with procedure.
--- NOTE | 2024-04-16 07:11 | WPDANESEPPF ---
Anes - Initial Pre Proc Eval Procedure: Operation Date: 04/16/24 07:30 Proposed Procedures p Left Extracorporeal Shock Wave Lithotripsy - Kailash Ruiz MD Date/Time: 04/16/24 07:11 Surgeon: Kailash Ruiz MD Pre Op Diagnosis: Left Ureteral Stone Patient Data Age: 53 Gender: F Height: 1.63 m Weight: 85.4 kg Last Vital Signs Pulse 82 04/16/24 06:34 BP 134/82 04/16/24 06:34 Pulse Ox 97 04/16/24 06:34 O2 Del Method Room Air 04/16/24 06:34 Allergies Allergy/AdvReac Type Severity Reaction Status Date / Time No Known Allergies Allergy Verified 04/16/24 06:31 Home Medications Medication Instructions Recorded Confirmed Type cholecalciferol (vitamin D3) 10 400 unit PO DAILY 03/23/24 04/09/24 History mcg (400 unit) capsule (Vitamin D3) multivit with minerals-iron 18 1 tablet PO DAILY 03/23/24 04/09/24 History mg-folic ac 400 mcg-vit K 25 mcg tablet (Adults Multivitamin) nicotine 21 mg/24 hr daily 1 patch transdermal DAILY 03/23/24 04/09/24 History transdermal patch omeprazole magnesium 20 mg 20 mg PO DAILY 03/23/24 04/09/24 History capsule,delayed release (Acid Informatics Physician (omeprazole)) oxybutynin chloride 5 mg tablet 5 mg PO TID PRN Spasms #20 tabs 03/24/24 04/09/24 Rx ibuprofen 600 mg tablet 600 mg PO Q6H PRN pain #30 tabs 04/05/24 04/09/24 Rx ondansetron 4 mg disintegrating 4 mg PO Q8H PRN nausea and 04/05/24 04/09/24 Rx tablet vomiting #14 tabs sulfamethoxazole 800 1 tablet PO Q12H 7 days #14 tabs 04/05/24 04/09/24 Rx mg-trimethoprim 160 mg tablet (Bactrim DS) Patient hx anesthesia problems: none Family hx anesthesia problems: none Results Review: All pre-operative results and documents have been reviewed as part of the pre-operative evaluation. [facility] Social History Social History Smoking packs per day: 0.5 Smoking cigarettes per day: 10.0 Years smoked: 20 Smoking pack-years: 10.00 Smoking status: Former smoker Tobacco type: cigarettes Smoking end date: 02/23/24 Alcohol intake: current Drinks per week: 1 Substance use: former Substance use type: former substance user Last use: 1999 Do You Feel Safe in your Home?: Yes Lack of Transportation: No Lack of Food: Never True Current Housing: I Have Housing Concerned About Future Housing: No Difficulty Paying Gas/Electric Bills: No Difficulty Paying for Meds: No Currently Unemployed: No Education: Associate Degree Difficulty w/ Childcare or Family Care: No Living arrangements: with family Spiritual care concerns: No Anes - Eval Final PreProcedure Day of Procedure 04/16/24 07:11 Patient weight: obese Heart: regular rate and rhythm Lungs: clear to auscultation Airway: Mallampati scale class II Neurological: alert and oriented Last oral intake: >/= 8 hours ASA classification: III Emergent: no Anesthetic plan: proceed Anesthesia type and monitoring: general LMA and standard monitoring Results Review: All pre-operative results and documents have been reviewed as part of the pre-operative evaluation. Informed Consent: The patient's anesthetic plan and its attendant risks and benefits were discussed with the patient/family/POA. Questions were solicited and answers provided to the satisfaction of the patient/family/POA.
[2024-04-16] MEDS: ceFAZolin 2 GM/D5W 50 ML 2 GM/50 ML BAG IVPB (07:36)
--- NOTE | 2024-04-16 07:55 | P.OP_ITS ---
Procedure Note - Detailed Date of Procedure 04/16/24 Pre-op Diagnosis Left Ureteral Stone Post-op Diagnosis Same Procedure Performed Cystoscopy, left stent removal, left ESWL Surgeon Kailash Ruiz MD Anesthesia General Description of Procedure The patient was brought to the operative suite where she was placed in the frog- legged position on the Dornier lithotripter table. Flexible cystoscopy was undertaken with a 16F flexible cystoscopy. Her urethra and bladder neck were endoscopically normal. The bladder mucosa was normal and there was a single, orthotopic ureteral orifice bilaterally. The tip of the indwelling stent is grasped and the stent is with ease.The patient was then repositioned in the supine position and the focal point of the lithotriptor was placed at a 7mm left renal calculus. A total of 2500 shocks were delivered at a power setting of 4. There appeared to be good fragmentation of the stone. The patient tolerated the procedure well and was taken to the recovery room in good condition. Drains No Packing No Pathology None sent Complications No immediate complications
[2024-04-16] MEDS: ONDANSETRON INJ 4 MG/2 ML VIAL IV PUSH (08:49)
[2024-04-16] MEDS: oxyCODONE HCL (*CRX) 5 MG TAB IR PO (09:05)
== END 2024-04-16 10:10 | disposition home or self-care (01) ==
PROVIDERS: PCP Family Medicine; Visit Provider Urology
PROC: (CPT 50590; principal; 2024-04-16 07:30)
DX: N20.1 Calculus of ureter (principal); Z87.891 Personal history of nicotine dependence; E66.9 Obesity, unspecified; Z68.32 Body mass index [BMI] 32.0-32.9, adult
CPT/HCPCS: 52310; 50590; 36415; 74018; 85610; 85730; A9270; J0690; J2250; J2405; J2704; J3010; J7030; J7120

== ENCOUNTER 2024-05-28 14:05 | Outpatient (CLI) | payer OTHER, SELFPAY ==
--- NOTE | ~2024-05-28 | XR_ITS ---
XR abdomen/kub 1V 05/28/2024 14:20 Indication: Ureteral stone Procedure: KUB Comparison: 04/16/2024 Findings: Bowel gas pattern nonobstructive. No abnormal calcifications. Interval removal of left uret eral stent. Impression: 1: No acute abdominal abnormality. Reviewed, dictated and finalized at location B. Impression: 1: No acute abdominal abnormality.
== END 2024-05-28 14:06 | disposition home or self-care (01) ==
PROVIDERS: PCP Family Medicine; Visit Provider Urology
DX: N20.0 Calculus of kidney (principal)
CPT/HCPCS: 74018

== ENCOUNTER 2025-04-14 14:37 | Outpatient (CLI) | payer OTHER, SELFPAY ==
--- NOTE | ~2025-04-14 | CT_ITS ---
CT Scan of the Chest without Contrast: Clinical Indication: Lung cancer screening, nicotine dependence Technique: Contiguous sections were acquired throughout the chest without intravenous contrast. Dose reduction technique was used on this scan by utilizing automated exposure control and iterative recon struction technique. The dose-length product (DLP) was 183.96 mGy-cm. Findings: There is no evidence of any significant mediastinal, hilar or axillary lymphadenopathy. The mediastin al soft tissues appear normal. There is no evidence of pleural or pericardial effusion. 3 mm right lower lobe pulmonary nodule present (axial image 59). Images through the upper abdomen reveal no abnormalities. Impression: Lung RADS 2: Benign appearance. 12 month follow-up screening CT advised. Reviewed, dictated and finalized at location . Impression: Lung RADS 2: Benign appearance. 12 month follow-up screening CT advised.
== END 2025-04-14 14:38 | disposition home or self-care (01) ==
LOC: MICIMG 14:38
PROVIDERS: PCP Physician Assistant; Visit Provider Physician Assistant
DX: Z12.2 Encounter for screening for malignant neoplasm of respiratory organs (principal); Z87.891 Personal history of nicotine dependence
CPT/HCPCS: 71271